=== PATIENT | male | born 1980 | race Two or more races ===

== ENCOUNTER 2018-08-11 08:16 | Day surgery (SDC) | payer OTHER ==
[2018-08-07 10:43] VITALS: BMI 26.4
[2018-08-11] MEDS ORDERED: PROPOFOL 20 ML ONE ×2 (10:31→11:18)
[2018-08-11] MEDS ORDERED: MIDAZOLAM HCL 2 MG/2 ML SINGLE DOSE VIAL ONE (10:31)
[2018-08-11] MEDS ORDERED: BUPIVACAINE HCL/EPINEPHRINE/PF 30 ML VIAL IJ ONE (10:33)
[2018-08-11] MEDS ORDERED: ceFAZolin SODIUM 1 GM VIAL ONE (10:58)
[2018-08-11] MEDS ORDERED: ONDANSETRON 4 MG/2 ML VIAL ONE (11:03)
[2018-08-11] MEDS ORDERED: DEXAMETHASONE SOD PHOSPHATE 4 MG/1 ML VIAL ONE (11:03)
[2018-08-11] MEDS ORDERED: BUPIVACAINE 0.25% /EPI 1:200,000 10 ML VIAL INF ONE (11:12)
--- NOTE | 2018-08-11 11:44 | DS ---
Physical Examination Vital Signs: Vital Signs Temperature 97.7 F 08/11/18 08:50 Pulse Rate 57 L 08/11/18 08:50 Respiratory Rate 18 08/11/18 08:50 Blood Pressure 133/84 08/11/18 08:50 O2 Sat by Pulse Oximetry (%) 100 08/11/18 08:50 Discharge Summary Reason For Visit: MEDIAL MENISCAL TEAR, RIGHT KNEE Condition: Good - Instructions Diet, Activity, Other Instructions: Post Operative Instructions: Knee Arthroscopy Dr Shola Figueredo 1. Pain following an arthroscopy is variable. Some patients will have more pain than others. You have been provided with a prescription for medication that contains a narcotic. You are not allowed to drive while on this medication. You should NOT take Tylenol (Acetaminophen) when taking the pain medication ( it will result in an overdose). . 2. You are allowed to remove the bandages and shower in 24 hours. You are not allowed to bathe or go swimming for 2 weeks. Put band-aids on the incisions after your shower and do not put any creams or lotions over the incisions. 3. You are allowed to put all your weight on the leg and bend your knee. 4. Apply ice to the knee for 15 min every hour or so. You may continue this for as many days as you like. 5. Please call the office to schedule a visit to have your sutures removed. 6. If for any reason you believe you may have an infection or are concerned, please feel free to call me. I can be reached through our office number 24 hours a day. 7. Please call our office with any questions; we will review the surgical findings during your post operative visit. Disposition: HOME - Home Medications Comprehensive Discharge Medication List: Ambulatory Orders Acetaminophen [Tylenol -] 500 mg PO Q8H PRN 08/07/18 Biotin 10,000 mcg PO DAILY 08/07/18 [place]-3 Fatty Acids/Fish Oil [Fish Oil 1,000 mg Capsule] 1 tab PO DAILY Psyllium Husk [Fiber] 0.52 gm PO DAILY 08/07/18
--- NOTE | 2018-08-11 11:44 | OP ---
Operative Note - Note: Operative Date: 08/11/18 Pre-Operative Diagnosis: Right knee MMT Operation: RKA, MMR Post-Operative Diagnosis: Same as Pre-op Surgeon: Shola Figueredo Anesthesia: General Operative Report Dictated: Yes
[2018-08-11 12:30] VITALS: BP 116/72; PULSE 61; TEMP 97.8
--- NOTE | 2018-08-16 16:46 | PATH ---
Surgical Pathology Report Patient Name: SHASTA PERALTA Med. Rec. #: [id number] /Age/Gender: 1980 (Age: 37) / M Account: [id number] Location: [facility] AMBULATORY Taken: 08/11/2018 Received: 08/11/2018 Reported: 08/16/2018 Physicians: Shola Figueredo M.D. Specimen(s) Received RIGHT KNEE SHAVINGS Clinical History Right knee medial meniscal tear Final Diagnosis KNEE SHAVINGS, RIGHT, ARTHROSCOPY AND MENISCAL REPAIR: FRAGMENTS OF CARTILAGE, DENSE FIBROCONNECTIVE TISSUE, ADIPOSE TISSUE, BONE, AND REACTIVE SYNOVIUM. Electronically Signed Kayce Nixon M.D. Gross Description Received in formalin, labeled "right knee shavings," is a 3.0 x 2.5 x 0.3 cm. aggregate of barajas-yellow soft tissue fragments. A wine sales representative portion is submitted in one cassette. /08/15/2018 saudi08/15/2018
== END 2018-08-11 12:54 | disposition home or self-care (01) ==
LOC: FASU 08:16
PROVIDERS: ATTEND Orthopaedic Surgery
PROC: 0SQC4ZZ Repair Right Knee Joint, Percutaneous Endoscopic Approach (ICD-10-PCS; principal; 2018-08-11 11:11)
DX: S83.241A Other tear of medial meniscus, current injury, right knee, initial encounter (principal); M23.003 Cystic meniscus, unspecified medial meniscus, right knee; X58.XXXA Exposure to other specified factors, initial encounter; Y93.9 Activity, unspecified; Y92.9 Unspecified place or not applicable
CPT/HCPCS: 88304-TC